=== PATIENT | female | born 1970 | race Caucasian/White ===

== ENCOUNTER 2019-04-30 07:51 | Day surgery (SDC) | payer OTHER ==
[~2019-04-30 07:51] MED LIST: Buffered Lidocaine 1% SYRIN* 1 ML/SYRINGE INTRADERM ONE; Lactated Ringers 1000 ML Bag* 1,000 ML IV SCH; Sodium Citrate/Citric Acid* 15 ML UDC PO ONE
[2019-04-30] MEDS ORDERED: Sodium Citrate/Citric Acid* 15 ML UDC ONE (08:17)
[2019-04-30] MEDS ORDERED: ceFAZolin 2 GM in NS PREMIX(*) 2 GM/100 ML BAG IVPB ONE (08:17)
[2019-04-30] MEDS ORDERED: Buffered Lidocaine 1% SYRIN* 1 ML/SYRINGE INTRADERM ONE (08:17)
[2019-04-30] MEDS ORDERED: Midazolam* 1 MG/ML 2 ML VIAL (2 MG) ONE (10:55)
[2019-04-30] MEDS ORDERED: fentaNYL* 50 MCG/ML 2 ML VIAL (100 MCG VIAL) ONE ×3 (10:55→15:16)
[2019-04-30] MEDS ORDERED: Propofol* 10 MG/ML 20 ML BTL ONE (10:55)
[2019-04-30] MEDS ORDERED: Lidocaine 2% PF * 5 ML VIAL ONE (10:55)
[2019-04-30] MEDS ORDERED: Bupivacaine 0.25% SDV PF* 10 ML VIAL INJ ONE (11:39)
[2019-04-30] MEDS ORDERED: Naloxone* 0.4 MG/ML 1 ML VIAL IV PRN (12:09)
[2019-04-30] MEDS ORDERED: Dexamethasone IV* 4 MG/ML 1 ML (4 MG) ONE (12:56)
[2019-04-30] MEDS ORDERED: Ketorolac INJ* 30 MG/ML 1 ML VIAL ONE (12:56)
[2019-04-30] MEDS ORDERED: Ondansetron INJ* 2 MG/ML VIAL ONE (12:56)
[2019-04-30] MEDS ORDERED: Bupivacaine 0.25% EPI 200,000* 30 ML SDV ONE (13:26)
[2019-04-30] MEDS: fentaNYL* 50 MCG/ML 2 ML VIAL (100 MCG VIAL) IV PRN ×5 (13:59→15:19)
[2019-04-30] MEDS ORDERED: HYDROcodone/ACETAMIN 5-325 MG* 1 TAB ONE ×2 (14:06→15:16)
[2019-04-30] MEDS ORDERED: DiMENhydriNATE IV* 50 MG/ML VIAL ONE (14:12)
[2019-04-30 16:46] VITALS: BP 111/72
--- NOTE | 2019-04-30 23:28 | OP ---
DATE OF OPERATION: 04/30/19 - [facility] DATE OF : 70 SURGEON: Cristian Escamilla MD. GLASS CLEANER: ROSEMARIE Bo. An junior administrative assistant was needed for the entirety of the procedure to aid in positioning of the arm and retraction. ANESTHESIOLOGIST: Dr. Hauser. ANESTHESIA: General. PRE-OP DIAGNOSIS: Right peripheral triangular fibrocartilage complex tear. 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 OPERATIVE PROCEDURES: 1. Right wrist orthoscopic TFCC debridement and partial synovectomy. 2. Right wrist DRUJ arthrotomy with TFCC repair. 3. Right ECU tendon groove deepening and repair of the ECU subsheath and 6th dorsal compartment extensor retinaculum. INDICATIONS: Elsa has a ulnar side wrist pain with mechanical symptoms including snapping and popping and sharp pain to start just on the ulnar side of the wrist and it go down proximately. Twisting activities are difficult. The pain is just increasing. We have talked about risks and benefits. She wants to proceed with surgery to see if she could get relief of the pain. She understands there is a chance that she may not get relief of the pain despite surgery. ESTIMATED BLOOD LOSS: 5 mL. COMPLICATIONS: None. FINDINGS: See above and below. She did have subluxation palmarly of the ECU tendon out of the groove, requiring groove deepening and subsheath repair together with extensor retinaculum repair for correction of this. DESCRIPTION OF PROCEDURE: Elsa was seen in the preoperative holding area. The correct site, side, and procedure were identified. We came back to the operating room where anesthesia was induced. The arm was prepped and draped in usual fashion and time out was performed. The arm was placed in the Acumed traction tower and inline traction was applied. I went ahead at this point and exsanguinated the arm and tourniquet was inflated to 250 mmHg. I first made a small incision about 2 mm with the 11 blade over the 3/4 portal. Dissection was carried down and the joint was entered with a mosquito followed by the cannula. The camera was introduced, a diagnostic arthroscopy was begun. A 6R portal was created. There was quite a bit of synovitis. This was all excised. There was a peripheral tear out near the ECU subsheath. The shaver was introduced. This was all debrided. There was also just a little bit of looked like some peel off on the origin of the palmar radial ulnar ligament, but nothing looked like a large tear, just a little bit of peeling off and some fraying, this was debrided back with the shaver. I had examined the DRUJ prior to placing her in the traction tower and the DRUJ did not feel unstable to me. At this point, it was not much likely with the arthroscopic equipment, so we handed all that off. We then took the arm out of the traction tower and went ahead and pronated the arm and then I went ahead and made a curvilinear incision over the dorsal ulnar aspect of the joint incorporating my prior 6R portal. Dissection was carried down the full-thickness flaps raised off the extensor retinaculum. I opened up the 5th dorsal compartment and transposed the EDM tendon. The DRUJ arthrotomy was made. I back the arthrotomy distally, but proximal to the TFCC. I made a second arthrotomy distal to the TFCC preserving the dorsoradial ulnar ligament origin. It looked like there was maybe a little bit of peel off of the some of the fibers that detached near the fovea, but the most glaring finding was that the ECU tendon was completely subluxated palmar to the ECU groove sitting very palmar. I thought this might be the case of her prior MRI, looked like she has grown a little accessory ossicle to help stabilize the tendon off of the distal ulna. I went ahead and released the ECU tendon. I then performed a groove deepening in the shawnee groove with the 4 mm round bur. I went ahead and placed 2 Mini Mitek suture anchors in the pseudo groove that had been created. This was used to freshen up the bone and the sutures were used to sew down the retinaculum and capsule there, so as to prevent prevent further resubluxation of the tendon. This was augmented with multiple 3-0 Ethibond [id number] sutures. I then had the tendon in the groove. I went ahead and placed one Mini Mitek suture anchor in the footprint of the fovea. This was used to secure the TFCC back down to the fovea with the associated 2-0 Ethibond suture. I then went ahead and brought my retinaculum back over and imbricated the retinaculum so as to tighten it up and keep the ECU tendon in the 6th dorsal compartment. This was repaired back to the remainder of the extensor retinaculum with multiple 3-0 Ethibond sutures and we have a good very nice tight repair. I went ahead and irrigated out this wound and closed the wound with a 3-0 nylon suture. I then went ahead and made a longitudinal incision over the ulnar aspect of the distal ulna. Dissection was carried down. The ulnar sensory branch was identified and retracted out of the way. She had a very symptomatic ossicle that had grown up the ulnar aspect of the distal ulna and associated with that ECU tendon. I went ahead and removed this with the rongeur and then I was able to tighten up the soft tissue structures on tight side of the wrist with multiple 3-0 Ethibond sutures. At this point, everything was looking very good. The DRUJ was very stable. It was nicely reduced. The ECU tendon was nicely sitting in the appropriate groove. I went ahead and irrigated everything out. Skin was closed with 4-0 nylon suture. 0.25% Marcaine was infiltrated down on the operative areas. Wounds were well padded and a sugar tong splint was applied with the arm in neutral rotation. She was awoken up and taken to the recovery room in stable condition. [id number]/[facility] #: [id number] JILLIAN
== END 2019-04-30 16:53 | disposition home or self-care (01) ==
LOC: OR 07:51
PROVIDERS: ATTEND Orthopaedic Surgery Hand Surgery
DX: S63.591D Other specified sprain of right wrist, subsequent encounter (principal); F41.9 Anxiety disorder, unspecified; J45.909 Unspecified asthma, uncomplicated; Z88.8 Allergy status to other drugs, medicaments and biological substances
CPT/HCPCS: 81025; A9270-GY; C1713; J0690; J1100; J1240; J1885; J2250; J2405; J2704; J3010; J3490

== ENCOUNTER 2019-05-29 10:06 | Emergency (ER) | payer OTHER ==
--- NOTE | 2019-05-29 10:30 | ED ---
Complex/Multi-Sys Presentation - HPI Summary HPI Summary: 48 year old F presenting to [facility] accompanied by daughter with a chief complaint of headache radiating to her neck, upper back, eyes since 15:00 yesterday and vomiting since 02:00 today. The patient rates the pain 10/10 in severity. Symptoms aggravated by bright lights. Symptoms alleviated by nothing. Patient reports nausea, diarrhea, abdominal cramping, light headedness since this morning. Patient denies hematemesis, bloody stools. Patient reports Hx migraine headaches last over a year ago. Patient states she has vomited with her headaches but she states that her vomiting is unrelated to her headache this time. Patient states that she has not been around anyone who has had a fever or has been sick at home or at work. - History Of Current Complaint Chief Complaint: EDNauseaVomitDiarrh Time Seen by Provider: 05/29/19 10:11 Hx Obtained From: Patient Onset/Duration: Lasting Hours, Still Present Timing: Constant Severity Currently: Severe Aggravating Factor(s): Nothing Alleviating Factor(s): Nothing Associated Signs And Symptoms: Positive: Other - nausea, diarrhea, abdominal cramping, dizziness, photophobia; NEGATIVE: hematemesis, bloody stools, lightheadedness - Allergies/Home Medications Allergies/Adverse Reactions: Allergies Allergy/AdvReac Type Severity Reaction Status Date / Time epinephrine Allergy Severe GETS Verified 05/29/19 10:08 PANICKY hazelnut Allergy Severe Unknown Verified 05/29/19 10:08 Reaction Details walnut Allergy Severe Unknown Verified 05/29/19 10:08 Reaction Details PMH/Surg Hx/FS Hx/Imm Hx Endocrine/Hematology History: Denies: Hx Diabetes Cardiovascular History: Denies: Hx Hypertension, Hx Pacemaker/ICD Respiratory History: Reports: Hx Asthma - hx of allergy induced History: Denies: Hx Renal Disease Musculoskeletal History: Reports: Hx of Fracture(s) - 4th left toe Sensory History: Denies: Hx Contacts or Glasses, Hx Hearing Aid Opthamlomology History: Denies: Hx Contacts or Glasses Neurological History: Reports: Hx Headaches, Hx Migraine Psychiatric History: Reports: Hx Anxiety Denies: Hx Panic Disorder - Cancer History Hx Chemotherapy: No Hx Radiation Therapy: No - Surgical History Surgery Procedure, Year, and Place: REMOVAL UTERINE POLYPS X3 [facility] Hx Anesthesia Reactions: Yes - once when givenan internal local-whole lower half of body was shaking and f Infectious Disease History: No Infectious Disease History: Denies: Traveled Outside the [place] in Last 30 Days - Family History Known Family History: Positive: Other - breast cancer - Social History Alcohol Use: None Hx Substance Use: No Substance Use Type: Reports: None Hx Tobacco Use: Yes Smoking Status (MU): Former Smoker Review of Systems Positive: Photophobia Gastrointestinal: Negative - hematemesis, bloody stools Positive: Vomiting, Diarrhea, Nausea, Other - abdominal cramping Neurological: Negative - lightheadedness, Other - Dizziness Positive: Headache All Other Systems Reviewed And Are Negative: Yes Physical Exam - Summary Physical Exam Summary: Constitutional: Well-developed, Well-nourished, Alert. Patient is mildly uncomfortable Skin: Warm, Dry HENT: Normocephalic; Atraumatic, Mucous membranes are dry Eyes: Conjunctiva normal Neck: Musculoskeletal ROM normal neck. (-) JVD, (-) Stridor (-) nuchal rigidity Cardio: Rhythm regular, rate normal, Heart sounds normal; Intact distal pulses; Radial pulses are 2+ and symmetric. (-) Murmur Pulmonary/Chest wall: Effort normal. (-) Respiratory distress, (-) Wheezes, (-) Rales Abd: Soft, (-) tenderness, (-) Distension, (-) Guarding, (-) Rebound Musculoskeletal: (-) Edema Lymph: (-) Cervical adenopathy Neuro: Alert, Oriented x3. CN 2-12 grossly intact. Steady gait. No dysmetria. Neg Romberg Psych: Mood and affect Normal Triage Information Reviewed: Yes Vital Signs On Initial Exam: Initial Vitals Temp Pulse Resp BP Pulse Ox 98.0 F 66 20 115/76 99 05/29/19 10:09 05/29/19 10:09 05/29/19 10:09 05/29/19 10:09 05/29/19 10:09 Vital Signs Reviewed: Yes Diagnostics - Vital Signs Vital Signs Temp Pulse Resp BP Pulse Ox 05/29/19 10:09 98.0 F 66 20 115/76 99 - Laboratory Result Diagrams: 05/29/19 11:45 05/29/19 11:45 Lab Statement: Any lab studies that have been ordered have been reviewed, and results considered in the medical decision making process. - EKG 1055 Cardiac Rate: Bradycardia - 59 BPM EKG Rhythm: Sinus Bradycardia Summary of EKG Findings: An EKG at 10:55 reveals normal sinus bradycardia 59 BPM , nml axis, nml intervals. No STEMI. No acute changes. 1111 Cardiac Rate: Bradycardia - 59 BPM EKG Rhythm: Sinus Bradycardia Summary of EKG Findings: An EKG at 10:55 reveals normal sinus bradycardia 59 BPM , nml axis, nml intervals. No STEMI. No acute changes. Re-Evaluation - Re-Evaluation First Eval Re-Evaluation Time: 12:24 Change: Improved Comment: Patient is feeling much better. Labs dont show any sign of infection. Plan for Zofran and discharge Complex Multi-Symp Course/Dx Course Of Treatment: 48 y/o F w hx migraines p/w headache, n/v/d. - VSS NAD. - PE w normal neuro exam, abdomen soft, appears dehydrated. This is a patient who presents with headache. Although does NOT have a history of headache of exactly the same type, pain was not sudden onset/thunderbolt, not worst of life , no meningismus, no neuro deficit on exam, and no personal/family history of aneurysm, so unlikely ICH. No known/suspected cancer and neuro exam WNL, so unlikely mass lesion. No fever, URI sx, meningismus, or known immunocompromised state to suggest meningitis. Therefore no imaging ordered and no LP performed at this point. Will try symptomatic relief and reassess. give IVF, reglan, toradol, reassess. patient much improved after IVF. Labs w/o leukocytosis. tolerated PO. dc w zofran. - Diagnoses Provider Diagnoses: Dehydration, Nausea and vomiting, Headache Discharge - Sign-Out/Discharge Documenting (check all that apply): Patient Departure - Discharge Patient Received Moderate/Deep Sedation with Procedure: No - Discharge Plan Condition: Stable Disposition: HOME Prescriptions: Ondansetron TAB* [Zofran 4 MG Tab*] 4 mg PO Q6H PRN #12 tab MDD 4 PRN Reason: Nausea/Vomiting Patient Education Materials: Dehydration (ED), General Headache (ED) Referrals: Farida Enrique MD [Primary Care Provider] - 2 Days Additional Instructions: Follow up with your primary care provider in 2 days. Return to the Emergency Department for new or worsening symptoms such as worsening headache, or inability to keep down food or drink. - Billing Disposition and Condition Condition: STABLE Disposition: Home - Attestation Statements Document Initiated by Scribe: Yes Documenting Scribe: Sandra Green Provider For Whom Barrie is Documenting (Include Credential): Esha Garcia MD Scribe Attestation: ISandra, scribed for Esha Garcia MD on 05/29/19 at 1356. Scribe Documentation Reviewed: Yes Provider Attestation: The documentation as recorded by the katelinibSandra richardson accurately reflects the service I personally performed and the decisions made by me, Esha Garcia MD Status of Scribe Document: Viewed
[2019-05-29] MEDS ORDERED: Metoclopramide IV* 5 MG/ML 2 ML VIAL IV SLOW PU ONE (10:40)
[2019-05-29] MEDS ORDERED: Ketorolac INJ* 30 MG/ML 1 ML VIAL IV ONE (10:40)
[2019-05-29] MEDS ORDERED: Lactated Ringers 1000 ML Bag* 1,000 ML IV SCH ×2 (11:00)
[2019-05-29] MEDS ORDERED: Acetaminophen TAB* 325 MG PO ONE (11:46)
[2019-05-29 11:52] LABS: ABS Lymphocytes 1.2 10^3/ul (1.0-4.8); ABS Monocytes 0.2 10^3/ul (0-0.8); Eosinophil % 0.2 %; Hematocrit 43 % (35-47); Hemoglobin 14.4 g/dL (12.0-16.0); Lymphocyte % 15.5 %; Mean Corpuscular HGB Conc 34 g/dL (31-36); Mean Corpuscular Hemoglobin 31 pg (27-31); Mean Corpuscular Volume 93 fL (80-97); Mean Platelet Volume 9.5 fL (7.4-10.4); Platelet Count 172 10^3/uL (150-450); Red Blood Count 4.62 10^6 /uL (3.70-4.87); Red Cell Distribution Width 13 % (10-15); White Blood Count 7.5 10^3/uL (3.5-10.8)
[2019-05-29 12:10] LABS: Albumin 4.1 g/dL (3.2-5.2); Albumin/Globulin Ratio 1.5 (1-3); BUN/Creatinine Ratio 18.2 (8-20); Calcium 9.3 mg/dL (8.6-10.3); EGFR African American 96.8 (>60); Globulin 2.7 g/dL (2-4); Potassium 4.2 mmol/L (3.5-5.0); Total Bilirubin 0.4 mg/dL (0.2-1.0); Total Protein 6.8 g/dL (6.4-8.9)
[2019-05-29 12:16] LABS: HCG Pregnancy 3.97 mIU/mL
[2019-05-29] MEDS ORDERED: Ondansetron INJ* 2 MG/ML VIAL IV ONE (12:24)
[2019-05-29 12:45] LABS: Urine Appearance Clear; Urine Bilirubin Negative (Negative); Urine Blood Negative (Negative); Urine Color Straw; Urine Glucose Negative (Negative); Urine Ketones Negative (Negative); Urine Nitrite Negative (Negative); Urine Protein Negative (Negative); Urine Specific Gravity 1.009 (1.010-1.030); Urine Urobilinogen Negative (Negative)
[2019-05-29 12:54] VITALS: BP 120/73
== END 2019-05-29 12:54 | disposition home or self-care (01) ==
LOC: ED 10:06
DX: R51 Headache (principal); E86.0 Dehydration; R11.2 Nausea with vomiting, unspecified; Z88.8 Allergy status to other drugs, medicaments and biological substances; Z87.891 Personal history of nicotine dependence
CPT/HCPCS: 36415; 80053; 81003; 84702; 85025; 93005; 96361; 96374; 96375; 99282; A9270-GY; J1885; J2405; J2765